=== PATIENT | female | born 1975 | race Caucasian/White ===

== ENCOUNTER 2021-07-10 08:21 | Inpatient (IN) | payer BC ==
[~2021-07-10] VITALS: Ht 172.7 cm; Wt 68.0 kg
[2021-07-10 08:27] VITALS: BP_SYST 110
--- NOTE | 2021-07-10 08:35 | NUR ---
RECEIVED PT IN BED #6, NAD, VSS, AAOx4, AWAITING ASSESSMENT BY ED MD FOR ABDOMINAL DISTENSION, CONSTIPATION, N/V. RECENT TREATMENT OF UTI. DID NOT FINISH ABX.
--- NOTE | 2021-07-10 08:39 | NUR ---
Patient to ER bed 6 to gown for evaluation. Side rails up. Report given to
--- NOTE | 2021-07-10 08:40 | NUR ---
ED MD BETANCUR AT BEDSIDE.
[2021-07-10] MEDS ORDERED: ONDANSETRON HCL 4 MG/2 ML VIAL IVP ONE (09:00)
[2021-07-10] MEDS ORDERED: NACL 0.9% 1,000 ML IV ONE ×2 (09:00→10:15)
[2021-07-10 09:15] LABS: BASOPHILS # (AUTO) 0.1 K/uL (0.0-0.2); BASOPHILS % (AUTO) 0.4 % (0.0-2.0); EOSINOPHILS # (AUTO) 0.1 K/uL (0.0-0.4); EOSINOPHILS % (AUTO) 0.4 % (0.0-4.0); HEMOGLOBIN 18.4 g/dL (12.0-16.0); LYMPHOCYTES # (AUTO) 2.2 K/uL (1.0-5.5); LYMPHOCYTES % (AUTO) 14.7 % (20.5-51.5); MEAN CORPUSCULAR HEMOGLOBIN 39 pg (27-31); MEAN CORPUSCULAR HGB CONC 36 % (32-36); MEAN CORPUSCULAR VOLUME 107 fL (79.0-98.0); MONOCYTES % (AUTO) 6.8 % (1.7-9.3); NEUTROPHILS # (AUTO) 11.5 K/uL (1.8-7.7); NEUTROPHILS % (AUTO) 77.7 % (40.0-70.0); PLATELET COUNT (AUTO) 468 K/uL (130-430); RED BLOOD CELL COUNT(AUTO) 4.77 MIL/uL (4.2-6.2); RED CELL DISTRIBUTION WIDTH 14.1 % (9.0-15.0)
[2021-07-10 09:24] LABS: WHITE BLOOD COUNT (AUTO) 14.8 K/uL (4.8-10.8)
[2021-07-10 09:54] LABS: CALCIUM 8.6 mg/dL (8.4-11.0); CREATININE 0.92 mg/dL (0.55-1.30)
[2021-07-10 10:00] LABS: ALBUMIN 3.9 g/dL (3.4-4.8); TOTAL BILIRUBIN 2.4 mg/dL (0.0-1.0)
[2021-07-10 10:01] LABS: POTASSIUM 2.5 mmol/L (3.5-5.1)
[2021-07-10] MEDS ORDERED: POTASSIUM CHLORIDE 20 MEQ/PKT PACKET PO ONE (10:15)
[2021-07-10] MEDS ORDERED: KCL 20 mEq in 100 mL (PREMIX) 100 ML IV ONE (10:15)
--- NOTE | 2021-07-10 11:15 | NUR ---
NO MEDS FOR RECONCILIATION PER PATIENT
--- NOTE | 2021-07-10 11:31 | NUR ---
Specimen Collected Nasal secretion collected and sent to lab for Covid antigen testing. pt aaox4. rails up bed down, pt is comfortable with no complaints at this time.
[2021-07-10 12:50] LABS: BILIRUBIN,URINE 1+ (NEGATIVE); BLOOD, URINE NEGATIVE (NEGATIVE); CLARITY/URINE CLEAR (CLEAR); COLOR,URINE YELLOW (YELLOW); GLUCOSE,URINE NEGATIVE (NEGATIVE); KETONES,URINE NEGATIVE (NEGATIVE); LEUKOCYTE ESTERASE ,URINE TRACE (NEGATIVE); NITRITE, URINE NEGATIVE (NEGATIVE); PROTEIN URINE NEGATIVE (NEGATIVE)
--- NOTE | 2021-07-10 13:00 | NUR ---
Admit bed requested Patient will be admitted to care of . Admitted to TELE unit. Diagnosis ACUTE CHOLECYSTITIS Inpatient (Yes or No) Y Observation (Yes or No) N Orientation concerns or request close to nursing station (Yes or No) N Covid Status NEG On vent or bipap N Isolation requirements N Needs a sitter N From Home (Yes or if No enter name of facility) Y Requires Dialysis (Yes or No) N Med Rec Completed (Yes of No) Y
[2021-07-10 13:36] LABS: BACTERIA,URINE FEW /HPF (None Seen); RBC,URINE 0-3 /HPF (0-3)
[2021-07-10 13:37] LABS: MUCUS,URINE 1+ /LPF (None Seen)
[2021-07-10] MEDS: metroNIDAZOLE 500 mg/NS 100 ML IV SCH (13:45)
--- NOTE | 2021-07-10 13:55 | NUR ---
ADMISSION NOTE: Received patient from ER via gurney. Patient is awake, alert, oriented X4. Patient oriented to hospital room, call light, toileting, pain management and safety-teach back done. Patient informed that is primary MD and that their room number is 118A Personal belongings checked and Belongings List documented. Call light within reach. Patient stable in no acute distress.
--- NOTE | 2021-07-10 13:58 | NUR ---
Patient will be admitted to care of Dr. Frank. Admitted to Tele unit. Will go to room 118A. Belongings list completed. Complete and up to date summary report printed. SBAR report to be given at bedside with opportunity for questions.
[2021-07-10] MEDS ORDERED: KCL 20 mEq in D5NS 1000 mL 1,000 ML IV ONE (14:00)
[2021-07-10] MEDS ORDERED: ONDANSETRON HCL 4 MG/2 ML VIAL IVP SCH (14:00)
--- NOTE | 2021-07-10 14:10 | NUR ---
CONSULTATION PAGED REASON FOR CONSULTATION:ACUTE CHOLECYSITI WAS CONSULT CALLED?Y PERSON WHO WAS NOTIFIED:VIET CONSULTING PHYSICIAN:EMERSON ALEGRIA (MARY BELLO SIGNS SALES REPRESENTATIVE) DRILLING CONTRACTOR SPECIALTY:GI DRILLING CONTRACTOR PHONE NUMBER:[phone] REQUESTING PHYSICIAN:SUGEY VAUGHAN
--- NOTE | 2021-07-10 14:15 | NUR ---
Miss Moore has been admitted to room 118-A. She has been assessed as indicated. Her skin has been noted to be intact. She tolerates ice chips well. She has no s/s of distress or discomfort. She denies nausea. She is eagerly awaiting interventions to relieve constipation. She has been noted to be both pleasant and cooperative, she will continue to be monitored
[2021-07-10 15:01] VITALS: BP_SYST 113
--- NOTE | 2021-07-10 19:15 | NUR ---
Handoff has been given to Alireza
[2021-07-10 19:59] VITALS: BP_SYST 122
[2021-07-10] MEDS: ENOXAPARIN SODIUM 40 MG/0.4 ML SYRINGE SUBCUT SCH (20:52)
[2021-07-11 00:35] VITALS: BP_SYST 112
[2021-07-11] MEDS ORDERED: metroNIDAZOLE 500 mg/NS 100 ML IV ONE (02:58)
[2021-07-11] MEDS: metroNIDAZOLE 500 mg/NS 100 ML IV SCH ×3 (05:35→22:12)
--- NOTE | 2021-07-11 07:26 | NUR ---
PATIENT HANDOFF REPORT WITH MARY ALICE KEVIN. GUSTAVO WEATHERS RN
[2021-07-11 07:55] LABS: BASOPHILS % (AUTO) 0.5 % (0.0-2.0); EOSINOPHILS # (AUTO) 0.1 K/uL (0.0-0.4); EOSINOPHILS % (AUTO) 1.2 % (0.0-4.0); HEMATOCRIT 39.5 % (36-48); LYMPHOCYTES % (AUTO) 27.2 % (20.5-51.5); MEAN CORPUSCULAR HEMOGLOBIN 39 pg (27-31); MEAN CORPUSCULAR HGB CONC 36 % (32-36); MONOCYTES # (AUTO) 0.5 K/uL (0.0-1.0); MONOCYTES % (AUTO) 6.6 % (1.7-9.3); NEUTROPHILS # (AUTO) 4.6 K/uL (1.8-7.7); NEUTROPHILS % (AUTO) 64.5 % (40.0-70.0); PLATELET COUNT (AUTO) 326 K/uL (130-430); RED BLOOD CELL COUNT(AUTO) 3.58 MIL/uL (4.2-6.2); RED CELL DISTRIBUTION WIDTH 14.1 % (9.0-15.0); WHITE BLOOD COUNT (AUTO) 7.2 K/uL (4.8-10.8)
[2021-07-11 08:00] VITALS: BP_SYST 132
[2021-07-11 08:03] LABS: CREATININE 0.75 mg/dL (0.55-1.30)
[2021-07-11 08:13] LABS: MEAN CORPUSCULAR VOLUME 110 fL (79.0-98.0)
[2021-07-11 09:03] LABS: POTASSIUM 2.8 mmol/L (3.5-5.1)
[2021-07-11 09:04] LABS: CALCIUM 6.8 mg/dL (8.4-11.0)
[2021-07-11] MEDS ORDERED: POTASSIUM CHLORIDE 20 MEQ TAB.PRT.SR PO ONE (11:00)
--- NOTE | 2021-07-11 11:06 | NUR ---
Dr Frank made aware of potassium level and calcium level. new orders as noted
[2021-07-11 12:00] VITALS: BP_SYST 124
[2021-07-11] MEDS: KCL 20 mEq in D5/0.45NS 1000mL 1,000 ML IV SCH ×2 (12:38→20:23)
[2021-07-11 16:00] VITALS: BP_SYST 127
[2021-07-11] MEDS ORDERED: MAGNESIUM SULFATE 4 GM in D5W 250 ML IV ONE (16:00)
--- NOTE | 2021-07-11 18:00 | NUR ---
Miss Moore has been assessed as indicated. She continues to deny pain. She states that she has had loose stools. Stool specimen has been sent to the lab. Potassium has been replaced. She completed and abdominal US. she is awaiting Magnesium replacement at this time. The med was not available at this time. She continues to ambulate to the restroom with no assistance. She has been advanced form clears to full and has tolerated it well.
--- NOTE | 2021-07-11 19:15 | NUR ---
Handoff has been given to Alireza
[2021-07-11 20:18] VITALS: BP_SYST 116
[2021-07-11] MEDS: ENOXAPARIN SODIUM 40 MG/0.4 ML SYRINGE SUBCUT SCH (20:20)
[2021-07-12 01:16] VITALS: BP_SYST 113
[2021-07-12 06:20] LABS: CREATININE 0.68 mg/dL (0.55-1.30)
[2021-07-12] MEDS: metroNIDAZOLE 500 mg/NS 100 ML IV SCH ×2 (06:41→12:40)
[2021-07-12 07:52] LABS: CALCIUM 6.9 mg/dL (8.4-11.0)
[2021-07-12 08:00] VITALS: BP_SYST 146
[2021-07-12 08:23] LABS: BASOPHILS # (AUTO) 0.1 K/uL (0.0-0.2); BASOPHILS % (AUTO) 1.1 % (0.0-2.0); EOSINOPHILS # (AUTO) 0.1 K/uL (0.0-0.4); HEMATOCRIT 41.6 % (36-48); HEMOGLOBIN 14.6 g/dL (12.0-16.0); LYMPHOCYTES # (AUTO) 1.6 K/uL (1.0-5.5); LYMPHOCYTES % (AUTO) 18.5 % (20.5-51.5); MEAN CORPUSCULAR HEMOGLOBIN 39 pg (27-31); MEAN CORPUSCULAR HGB CONC 35 % (32-36); MEAN CORPUSCULAR VOLUME 111 fL (79.0-98.0); MONOCYTES # (AUTO) 0.6 K/uL (0.0-1.0); MONOCYTES % (AUTO) 7.3 % (1.7-9.3); NEUTROPHILS # (AUTO) 6.1 K/uL (1.8-7.7); PLATELET COUNT (AUTO) 331 K/uL (130-430); RED BLOOD CELL COUNT(AUTO) 3.76 MIL/uL (4.2-6.2); RED CELL DISTRIBUTION WIDTH 14.2 % (9.0-15.0); WHITE BLOOD COUNT (AUTO) 8.4 K/uL (4.8-10.8)
[2021-07-12 08:54] LABS: NEUTROPHILS % (AUTO) 72.1 % (40.0-70.0)
[2021-07-12] MEDS ORDERED: CALCIUM GLUCONATE 2 GM in NS 100 ML IV ONE (10:00)
[2021-07-12] MEDS ORDERED: K PHOS 15 MM in NS 250 ML IV ONE (12:00)
[2021-07-12] MEDS ORDERED: METR-154 PO (14:07)
[2021-07-12] MEDS ORDERED: SACC250C3 PO ×2 (14:32→14:33)
--- NOTE | 2021-07-12 18:19 | NUR ---
0800: PATIENT IS AWAKE, ALERT, ORIENTED X 4 TO NAME, PERSON, PLACE, AND TIME. RESPIRATION EVEN AND UNLABORED NO S/S OF ANY ACUTE DISTRESS NOTED. ABLE TO VERBALIZE NEEDS NO C/O ANY PAIN OR DISCOMFORT NOTED. ABDOMEN SOFT AND NON-DISTENDED, POSITIVE BOWEL SOUND X 4 NO N/V OR ABDOMINAL DISCOMFORT NOTED. SKIN WARM AND DRY INTACT W/O ANY REDNESS OR EDEMA NOTED. WILL CONTINUE TO REASSESS PATIENT PRN. 1030: MADE DR. Lesly MOON AWARE OF ABNORMAL LAB RESULT WITH NEW ORDER RECEIVED, NOTED AND WAS CARRIED OUT ORDERED. 1800: PATIENT DISCHARGE HOME WITH NEW PRESCRIPTION FOR MEDS GIVEN TO PATIENT. DISCHARGE INSTRUCTION GIVEN TO PATIENT VERBALIZE UNDERSTANDING AND WILL COMPLY WITH INSTRUCTION GIVEN. IV HEPLOCK AND TOP LOADER DC'D. PATIENT LEFT THE HOSPITAL W/O ANY DISCOMFORT NOTED.
== END 2021-07-12 17:48 | disposition home or self-care (01) | DRG 392 ==
LOC: SED 08:21 → STU 12:54
PROVIDERS: ADMIT Family Medicine; ATTEND Family Medicine
DX: K52.9 Noninfective gastroenteritis and colitis, unspecified (principal); E86.0 Dehydration; R74.01 Elevation of levels of liver transaminase levels; E87.6 Hypokalemia; D72.829 Elevated white blood cell count, unspecified; Z20.822 Contact with and (suspected) exposure to COVID-19; Z87.440 Personal history of urinary (tract) infections
CPT/HCPCS: 36415; 74021; 76376; 76700-TC; 80048; 80053; 80074; 81000; 82272; 83690; 83735; 84100; 85025; 87045-TC; 87046; 87081; 87086; 87230-TC; 89055; 93005; 96374; 99285; G0378; J0610; J1650; J2405; J3475; J3480; J3490; J7050; J7060

== ENCOUNTER 2021-07-22 01:01 | Emergency (ER) | payer BC ==
[~2021-07-22] VITALS: Ht 172.7 cm; Wt 68.0 kg
[~2021-07-22 01:01] MED LIST: METR-154 PO; SACC250C3 PO
[2021-07-22 01:30] VITALS: BP_SYST 127
[2021-07-22] MEDS ORDERED: LIDOCAINE/EPI 1% 1:100000 20 ML VIAL INJ ONE (01:45)
--- NOTE | 2021-07-22 01:45 | NUR ---
INITIAL ASSESSMENT DONE, CONNECTED TO BEDSIDE MONITOR VSS,AFEBRILE.
[2021-07-22] MEDS ORDERED: CEPH-548 PO (02:15)
[2021-07-22] MEDS ORDERED: NAPR-690 PO (02:15)
[2021-07-22] MEDS ORDERED: ANURH RC (02:15)
[2021-07-22 02:41] VITALS: BP_SYST 128
--- NOTE | 2021-07-22 02:44 | NUR ---
0150 DR MENJIVAR IN EXAMINING PT. AWAITING FOR HEMORROIDS I&D
--- NOTE | 2021-07-22 02:46 | NUR ---
[address] MENJIVAR FOR I &D ASEPTICALLY.HEMORROIDS WITH [place] EVACUATED
--- NOTE | 2021-07-22 02:47 | NUR ---
0215 Patient given written and verbal discharge instructions and verbalizes understanding. ER MD MENJIVAR discussed with patient the results and treatment provided. Patient in stable condition. ID arm band removed. Rx of ANUSOL SUPP given. Patient educated on pain management and to follow up with PMD. Pain Scale 4. Opportunity for questions provided and answered. Medication side effect fact sheet provided.
[2021-07-22] MEDS ORDERED: HYDR-3917 PO (06:19)
[2021-07-22] MEDS ORDERED: BISA-79 PO (06:19)
== END 2021-07-22 02:41 | disposition home or self-care (01) ==
LOC: SED 01:01
DX: K64.4 Residual hemorrhoidal skin tags (principal)
CPT/HCPCS: 99284

== ENCOUNTER 2021-07-22 05:28 | Emergency (ER) | payer BC ==
[~2021-07-22] VITALS: Ht 172.7 cm; Wt 68.0 kg
[~2021-07-22 05:28] MED LIST changes: +ANURH RC; +CEPH-548 PO; +NAPR-690 PO
[2021-07-22 05:45] VITALS: BP_SYST 123
--- NOTE | 2021-07-22 06:09 | NUR ---
ER at bedside examining patient.
[2021-07-22] MEDS ORDERED: HYDR-3917 PO (06:19)
[2021-07-22] MEDS ORDERED: BISA-79 PO (06:19)
[2021-07-22] MEDS: MORPHINE 4 MG INJ. 4 MG/ML VIAL IM ONE (06:30)
--- NOTE | 2021-07-22 06:30 | NUR ---
Pt seen earlier today in ED for external hemorroids and was then discharged home. Pt returned to ED shortly after due to worsening of pain. Describes pain as 10/10 sharp rectal pain. at bedside.
[2021-07-22] MEDS: KETAMINE 30 MG/3 ML SYRINGE IM ONE (06:39)
--- NOTE | 2021-07-22 07:10 | NUR ---
REPORT RECEIVED FROM MARY ALICE LONDON. PT IS LAYING IN BED, AAOX4, VSS. AT THE BEDSIDE
[2021-07-22 07:47] VITALS: BP_SYST 127
--- NOTE | 2021-07-22 07:48 | NUR ---
Patient given written and verbal discharge instructions and verbalizes understanding. ER MD discussed with patient the results and treatment provided. Patient in stable condition. ID arm band removed. Rx of NORCO AND DULCOLAX given. Patient educated on pain management and to follow up with PMD. Pain Scale 0/10. Opportunity for questions provided and answered. Medication side effect fact sheet provided.
== END 2021-07-22 07:48 | disposition home or self-care (01) ==
LOC: SED 05:28
DX: K64.5 Perianal venous thrombosis (principal); Z79.899 Other long term (current) drug therapy
CPT/HCPCS: 96372; 99284; J2270

== ENCOUNTER 2021-07-23 12:11 | Emergency (ER) | payer BC ==
[~2021-07-23] VITALS: Ht 172.7 cm; Wt 68.0 kg
[~2021-07-23 12:11] MED LIST changes: +BISA-79 PO; +HYDR-3917 PO
[2021-07-23 12:27] VITALS: BP_SYST 129
--- NOTE | 2021-07-23 12:27 | NUR ---
Patient to ER bed 7 to go for evaluation. Side rails up. Report given to MARY ALICE BRYAN. Addendum: 07/23/21 at 1257 by [email or web address] Patient to ER bed 7 to [facility] for evaluation. Side rails up. Report given to MARY ALICE COLVIN.
--- NOTE | 2021-07-23 12:36 | NUR ---
PT CAME IN FROM HOME STATES SHE WOULD LIKE TO RETURN TO WORK AND WOULD LIKE TO BE SEEN BY MD. REPORTS PAIN HAS IMPROVED BUT STILL WORSENES WITH MOVEMENTS. REPORTS SOME BLEEDING AT THE SITE OF REPAIR OF THROMBOSED HEMMORHOID BUT IT IS MINIMAL AND CONTROLLED. 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 PT IS AMBULATORY, AAOX4, VSS
--- NOTE | 2021-07-23 13:00 | NUR ---
Made contact with patient. Pt alert and oriented x 3. Here to have work note revised due to recent procedure to repair hemorrhoid done here 2 days ago. Pt awaiting MD spencer.
--- NOTE | 2021-07-23 13:01 | NUR ---
ER Dr. Diehl at bedside examining patient.
--- NOTE | 2021-07-23 13:20 | NUR ---
Patient given written and verbal discharge instructions and verbalizes understanding. ER MD discussed with patient the results and treatment provided. Patient in stable condition. ID arm band removed. Patient educated on pain management and to follow up with PMD. Pain scale 0/10. Opportunity for questions provided and answered.
== END 2021-07-23 13:20 | disposition home or self-care (01) ==
LOC: SED 12:11
DX: K62.5 Hemorrhage of anus and rectum (principal); Z79.899 Other long term (current) drug therapy
CPT/HCPCS: 99282

== ENCOUNTER 2022-02-28 04:46 | Inpatient (IN) | payer BC ==
[~2022-02-28] VITALS: Ht 172.7 cm; Wt 65.8 kg
--- NOTE | 2022-02-28 05:26 | NUR ---
ER in triage examining patient.
[2022-02-28 05:37] VITALS: BP_SYST 106
--- NOTE | 2022-02-28 05:43 | NUR ---
Patient triaged and placed in waiting room. VS checked and patient appears in no acute distress at this time. Accompanied by self, awaiting available bed.
[2022-02-28] MEDS ORDERED: NACL 0.9% 1,000 ML IV ONE ×2 (06:00→11:15)
[2022-02-28] MEDS ORDERED: ONDANSETRON HCL 4 MG/2 ML VIAL IVP ONE ×2 (06:00→09:15)
[2022-02-28] MEDS ORDERED: KETOROLAC TROMETHAMINE 30 MG VIAL IM ONE (06:00)
--- NOTE | 2022-02-28 06:03 | NUR ---
Patient ambulatory to bed hallway for further treatment
[2022-02-28] MEDS ORDERED: KETOROLAC TROMETHAMINE 30 MG VIAL IVP ONE (06:30)
[2022-02-28 06:42] LABS: BILIRUBIN,URINE 3+ (NEGATIVE); BLOOD, URINE NEGATIVE (NEGATIVE); CLARITY/URINE CLEAR (CLEAR); COLOR,URINE YELLOW (YELLOW); GLUCOSE,URINE TRACE (NEGATIVE); KETONES,URINE TRACE (NEGATIVE); LEUKOCYTE ESTERASE ,URINE TRACE (NEGATIVE); NITRITE, URINE POSITIVE (NEGATIVE); PH,URINE 6.5 (5.0-8.0); PROTEIN URINE 1+ (NEGATIVE)
[2022-02-28 06:44] LABS: UROBILINOGEN,URINE >=8 (0.2-1.0)
[2022-02-28 06:50] LABS: BACTERIA,URINE MODERATE /HPF (None Seen); MUCUS,URINE 1+ /LPF (None Seen); RBC,URINE 0-3 /HPF (0-3); YEAST,URINE Few /HPF (None Seen)
--- NOTE | 2022-02-28 07:54 | NUR ---
Medicated per MD orders. IVF infusing with no s/s of infiltration at this time. Will cont to monitor
--- NOTE | 2022-02-28 07:54 | NUR ---
MARY ALICE CHOE medicated per MD Zavala ordered. Pt tolerated well.
--- NOTE | 2022-02-28 07:54 | NUR ---
# 20 gauge angiocath placed to LAC. Use of asceptic technique. Opsite placed over site. Blood return noted. Blood for lab drawn from site. Flushed with 10 cc of normal saline. No evidence of infiltration noted. Patient tolerated well.
--- NOTE | 2022-02-28 08:11 | NUR ---
Pt pain reassessed, pt states pain has relieved to 5/10. Laying comfortably in gurney in rowan with blanket. Alert and oriented x4.
[2022-02-28 08:38] LABS: BASOPHILS % (AUTO) 0.1 % (0.0-2.0); HEMOGLOBIN 12.7 g/dL (12.0-16.0); LYMPHOCYTES % (AUTO) 9.1 % (20.5-51.5); MEAN CORPUSCULAR HEMOGLOBIN 39 pg (27-31); MEAN CORPUSCULAR HGB CONC 34 % (32-36); MEAN CORPUSCULAR VOLUME 113 fL (79.0-98.0); MONOCYTES # (AUTO) 0.7 K/uL (0.0-1.0); MONOCYTES % (AUTO) 6.4 % (1.7-9.3); NEUTROPHILS # (AUTO) 9.1 K/uL (1.8-7.7); NEUTROPHILS % (AUTO) 84.4 % (40.0-70.0); PLATELET COUNT (AUTO) 240 K/uL (130-430); RED BLOOD CELL COUNT(AUTO) 3.28 MIL/uL (4.2-6.2); RED CELL DISTRIBUTION WIDTH 16.5 % (9.0-15.0); WHITE BLOOD COUNT (AUTO) 10.8 K/uL (4.8-10.8)
[2022-02-28 08:53] LABS: CALCIUM 7.6 mg/dL (8.4-11.0); CREATININE 0.84 mg/dL (0.55-1.30)
--- NOTE | 2022-02-28 08:57 | NUR ---
PT denies food , requests apple juice. Pt states pain level is returning to right flank 09/08.
[2022-02-28 08:59] LABS: ALBUMIN 2.2 g/dL (3.4-4.8); TOTAL BILIRUBIN 3.7 mg/dL (0.0-1.0)
[2022-02-28] MEDS ORDERED: iohexoL 350 mgI/mL, 100 ML INFUS..BTL IV ONE (09:05)
[2022-02-28] MEDS ORDERED: MORPHINE 4 MG INJ. 4 MG/ML VIAL IVP ONE (09:15)
--- NOTE | 2022-02-28 09:15 | NUR ---
VSS 118/78 heart rate 108. notified.
[2022-02-28 09:24] LABS: INR 1.1 (0.8-1.2); PROTHROMBIN TIME 11.9 SECS (9.5-12.5)
--- NOTE | 2022-02-28 10:50 | NUR ---
PT PAIN MANAGED WITH 05/09. PT ALERT ORIENTED WITH BED RAILS UP BED DOWN.
[2022-02-28] MEDS ORDERED: *HEPARIN PER PHARMACY XX ONE (11:00)
[2022-02-28] MEDS ORDERED: cefTRIAXone 1 GM in D5W 50 ML IV ONE (11:15)
[2022-02-28] MEDS ORDERED: ACETAMINOPHEN 325 MG TABLET PO PRN (11:30)
[2022-02-28] MEDS ORDERED: HYDROcodone/ACETAMIN 5-325 MG TAB (NORCO/ VICODIN) PO PRN (11:30)
[2022-02-28] MEDS ORDERED: ONDANSETRON HCL 4 MG/2 ML VIAL IVP PRN (11:30)
[2022-02-28] MEDS ORDERED: cefTRIAXone 1 GM VIAL ONE (11:32)
[2022-02-28] MEDS ORDERED: HEPARIN SODIUM,PORCINE 3000 UNITS/0.6 ML BOLUS IVP PRN (11:45)
[2022-02-28] MEDS ORDERED: HEPARIN SODIUM,PORCINE 2000 UNITS/0.4 ML BOLUS IVP PRN (11:45)
[2022-02-28] MEDS ORDERED: FOLIC ACID 1 MG, THIAMINE HCL 100 MG, MAGNESIUM SULFATE 1 GM, MVI 10 ML in NACL 0.9% 1,... IV ONE (11:45)
[2022-02-28] MEDS ORDERED: HEPARIN SODIUM,PORCINE 5,000 UNITS/ML VIAL IVP ONE (11:45)
[2022-02-28] MEDS: HEPARIN 25,000 UNITS in 250 ML PREMIX IV PRN (11:53)
--- NOTE | 2022-02-28 11:53 | NUR ---
covid swab collected
--- NOTE | 2022-02-28 12:54 | NUR ---
CONSULT: CONSULT CALLED FOR DR ANNETTE Gilbert REASON: POM ORDERED BY DR LAI
--- NOTE | 2022-02-28 13:09 | NUR ---
CONSULT CALLED FOR Ofelia ELIZABETH REASON; POM REQUESTING - DR LAI SPOKE WITH SURYA
[2022-02-28] MEDS ORDERED: FOLIC ACID 1 MG, MVI 10 ML in NACL 0.9% 1,000 ML IV ONE (13:30)
[2022-02-28] MEDS: cefTRIAXone 1 GM IVPB PREMIX 50 ML IV SCH (13:30)
[2022-02-28] MEDS ORDERED: THIAMINE HCL 100 MG, MAGNESIUM SULFATE 1 GM in NS 100 ML IV ONE (13:30)
--- NOTE | 2022-02-28 13:58 | NUR ---
CONSULT CONSULT CALLED FOR DR REYES REASON: PE [phone] LAI
[2022-02-28] MEDS ORDERED: NORMAL SALINE 5 ML DISP.SYRIN IVF SCH (14:00)
[2022-02-28] MEDS: NORMAL SALINE 5 ML DISP.SYRIN IVF SCH ×2 (14:00→21:54)
--- NOTE | 2022-02-28 17:01 | NUR ---
SPOKE WITH CLEMENCIA FROM [facility] WITH PATIENTS INSURANCE FAXED OVER CLINICALS AND FACESHEET TO [phone] Addendum: 02/28/22 at 1702 by MAHENDRA SPOKE WITH CLEMENCIA FROM [facility] WITH PATIENTS INSURANCE FAXED OVER CLINICALS AND FACESHEET TO [phone] AUTH NUMBER FOR ADMISSION [id number]
--- NOTE | 2022-02-28 19:33 | NUR ---
REPORT GIVEN TO MARY ALICE SHEFFIELD. PT CARA, VSS
--- NOTE | 2022-02-28 19:48 | NUR ---
PATIENT RESTING, EASY TO AROUSE, NO VOICED C/O AT THIS TIME. IVF INFUSING PER ORDER NO S/S OF ANY DISTRESS NOTED. RESPIRATIONS EVEN AND NON LABORED, ABD SOFT WITH POSITIVE BOWEL SOUNDS, NO EDEMA NOTED. IV SITES INTACT. SIDE RAILS UP WILL CONTINUE TO MONITOR.
[2022-02-28] MEDS ORDERED: SACCHAROMYCES BOULARDII 250 MG CAPSULE (FLORASTOR) PO SCH (21:00)
[2022-02-28] MEDS: BISACODYL 5 MG TABLET.DR (DULCOLAX) PO SCH (21:41)
[2022-02-28] MEDS: LACTOBACILLUS RHAMNOSUS GG 1 CAP CAPSULE PO SCH (21:41)
--- NOTE | 2022-02-28 22:46 | NUR ---
PATIENT WAS MOVED INTO ROOM #8, CONTINUES TO REST WITHOUT ANY C/O PAIN OR DISCOMFORT AT THIS TIME. IVF INFUSING VIA THE PUMP PER 0RDER. NO S/S OF ANY DISTRESS NOTED, WILL CONTINUE TO MONITOR.
--- NOTE | 2022-02-28 23:32 | NUR ---
PATIENT SLEEPING, EASY TO AROUSE, NO VOICED C/O PAIN OR DISCOMFORT, NO CHANGE NOTED IN PRIMARY ASSESSMENT. SIDE RAILS REMAIN UP.
--- NOTE | 2022-03-01 02:56 | NUR ---
CONTINUES TO REST WITHOUT ANY C/O PAIN OR DISCOMFORT. IVF CONTINUE PER ORDER, SIDE RAILS REMAINE UP, WILL CONTINUE TO MONITOR.
--- NOTE | 2022-03-01 05:01 | NUR ---
CONSULTATION PAGED/CALLED Reason for Consultation: transaminitis Person Who was Notified: daniel Consulting Physician: timothy velásquez arrora is extermination inspector Ship Captain Specialty: Ordering Physician: alondra burnham
[2022-03-01 05:39] LABS: BASOPHILS % (AUTO) 0.5 % (0.0-2.0); EOSINOPHILS # (AUTO) 0.1 K/uL (0.0-0.4); EOSINOPHILS % (AUTO) 0.8 % (0.0-4.0); HEMATOCRIT 33.4 % (36-48); HEMOGLOBIN 11.7 g/dL (12.0-16.0); LYMPHOCYTES # (AUTO) 1.2 K/uL (1.0-5.5); LYMPHOCYTES % (AUTO) 16.6 % (20.5-51.5); MEAN CORPUSCULAR HEMOGLOBIN 39 pg (27-31); MEAN CORPUSCULAR HGB CONC 35 % (32-36); MEAN CORPUSCULAR VOLUME 112 fL (79.0-98.0); MONOCYTES # (AUTO) 0.3 K/uL (0.0-1.0); MONOCYTES % (AUTO) 4.2 % (1.7-9.3); NEUTROPHILS # (AUTO) 5.4 K/uL (1.8-7.7); NEUTROPHILS % (AUTO) 77.9 % (40.0-70.0); PLATELET COUNT (AUTO) 207 K/uL (130-430); RED BLOOD CELL COUNT(AUTO) 2.97 MIL/uL (4.2-6.2); RED CELL DISTRIBUTION WIDTH 16.6 % (9.0-15.0)
[2022-03-01 06:07] LABS: ERYTHROCYTE SEDIMENTATION RATE 23 MM/HR (0-20)
--- NOTE | 2022-03-01 06:07 | NUR ---
SLEEPING, NO S/S F ANY DISTRESS NOTED AT THIS TIME.
[2022-03-01] MEDS: NORMAL SALINE 5 ML DISP.SYRIN IVF SCH ×3 (06:12→21:30)
[2022-03-01 06:19] LABS: C-REACTIVE PROTEIN QUANT 11.1 mg/dL (0-0.5); CALCIUM 7.5 mg/dL (8.4-11.0); CREATININE 0.62 mg/dL (0.55-1.30); PHOSPHORUS 2.2 mg/dL (2.7-4.5)
[2022-03-01] MEDS ORDERED: KCL 40 mEq in 100 mL (PREMIX) 100 ML IV ONE (07:00)
--- NOTE | 2022-03-01 07:08 | NUR ---
PMD INFORMED OF MORNING POTASSIUM LEVEL OF 2.4, MEDICATATED INFUSING PER ORDER.
--- NOTE | 2022-03-01 07:29 | NUR ---
REPORT GIEN TO ACCEPTING NURSE, PATIENT REMAINS STABLE.
--- NOTE | 2022-03-01 07:35 | NUR ---
Stanley of care received, pt A&O x4, sitting in bed at this time, pt requesting pain medications at this time, will cont to monitor
[2022-03-01] MEDS ORDERED: POTASSIUM CHLORIDE 40 MEQ in NS 250 ML IV ONE (08:00)
--- NOTE | 2022-03-01 08:05 | NUR ---
PTT Per protocol ordered at this time, awaiting for results
[2022-03-01] MEDS ORDERED: MORPHINE 4 MG INJ. 4 MG/ML VIAL IVP ONE (08:15)
--- NOTE | 2022-03-01 08:20 | NUR ---
Dr Ramirez evaluating patient at bedside
--- NOTE | 2022-03-01 09:10 | NUR ---
Breakfast given to patient, well tolerated
[2022-03-01] MEDS: BISACODYL 5 MG TABLET.DR (DULCOLAX) PO SCH ×2 (10:27→21:00)
[2022-03-01] MEDS: LACTOBACILLUS RHAMNOSUS GG 1 CAP CAPSULE PO SCH ×2 (10:27→21:30)
[2022-03-01] MEDS: HEPARIN 25,000 UNITS in 250 ML PREMIX IV PRN ×2 (11:35→18:29)
--- NOTE | 2022-03-01 11:45 | NUR ---
Dr Islas and pharmacy notified of pt's PTT 44.3, HEPARIN DRIP infusion increase by 100 units, Heparin adjusted to 1100UNITS/HR , 11 ML/ HR , will repeat PTT in 6 hours after dose changed.
--- NOTE | 2022-03-01 12:44 | NUR ---
Dr Mackenzie (PA)evaluating patient at bedside
--- NOTE | 2022-03-01 12:58 | NUR ---
LUNCH TRAY GIVEN TO PATIENT , WELL TOLERATED
[2022-03-01] MEDS: cefTRIAXone 1 GM IVPB PREMIX 50 ML IV SCH (14:08)
--- NOTE | 2022-03-01 15:36 | NUR ---
Pt resting in bed at this time, no s/s of distress, will cont to monitor
--- NOTE | 2022-03-01 16:00 | NUR ---
Pt off the unit for US
--- NOTE | 2022-03-01 16:37 | NUR ---
Dr Islas notified US for misbah lower extremities was negative
--- NOTE | 2022-03-01 18:30 | NUR ---
PTT 39, HEPARIN DRIP infusion increased by 200 units per Protocol, Heparin 2000 units IVP administered per protocol, Heparin adjusted to 1300UNITS/HR , 13 ML/ HR as per protocol , will repeat PTT in 6 hours after dose changed.
--- NOTE | 2022-03-01 19:28 | NUR ---
Report given to Allegra WHEAT
--- NOTE | 2022-03-01 19:30 | NUR ---
Pt report received. Pt AAOx4, even and non-labored respirations, no needs verbalized at this time. PIV LAC patent and secure with Heparin drip infusing at 1300 Units/hr. VSS, NAD.
[2022-03-01] MEDS: HYDROcodone/ACETAMIN 10-325 MG TAB PO PRN (21:48)
--- NOTE | 2022-03-01 21:48 | NUR ---
Pt c/o lower back pain. [place] 10 mg PO given.
--- NOTE | 2022-03-01 22:48 | NUR ---
Alexy sanchez in ED - 03/01/22 at 2317 by [email or web address] Pt resting quietly with eyes closed, respirations even and non-labored, NAD.
--- NOTE | 2022-03-01 22:48 | NUR ---
Pt resting quietly with eyes closed, respirations even and non-labored, NAD.
--- NOTE | 2022-03-02 02:00 | NUR ---
Resting quietly, VSS, NAD.
[2022-03-02] MEDS ORDERED: HEPARIN 25,000 UNITS/D5W 250ML 250 ML IV ONE (06:12)
[2022-03-02] MEDS ORDERED: HYDROcodone/ACETAMIN 10-325 MG TAB ONE (06:16)
[2022-03-02] MEDS: NORMAL SALINE 5 ML DISP.SYRIN IVF SCH ×3 (06:20→21:32)
[2022-03-02 06:26] LABS: BASOPHILS % (AUTO) 0.5 % (0.0-2.0); EOSINOPHILS # (AUTO) 0.1 K/uL (0.0-0.4); EOSINOPHILS % (AUTO) 1.3 % (0.0-4.0); HEMATOCRIT 32.7 % (36-48); HEMOGLOBIN 11.3 g/dL (12.0-16.0); LYMPHOCYTES # (AUTO) 1.3 K/uL (1.0-5.5); LYMPHOCYTES % (AUTO) 18.1 % (20.5-51.5); MEAN CORPUSCULAR HEMOGLOBIN 39 pg (27-31); MEAN CORPUSCULAR HGB CONC 35 % (32-36); MEAN CORPUSCULAR VOLUME 113 fL (79.0-98.0); MONOCYTES # (AUTO) 0.5 K/uL (0.0-1.0); MONOCYTES % (AUTO) 7.4 % (1.7-9.3); NEUTROPHILS # (AUTO) 5.1 K/uL (1.8-7.7); NEUTROPHILS % (AUTO) 72.7 % (40.0-70.0); PLATELET COUNT (AUTO) 210 K/uL (130-430); RED CELL DISTRIBUTION WIDTH 16.3 % (9.0-15.0)
[2022-03-02] MEDS: HEPARIN 25,000 UNITS in 250 ML PREMIX IV PRN ×2 (06:26→21:56)
[2022-03-02] MEDS: HYDROcodone/ACETAMIN 10-325 MG TAB PO PRN ×2 (06:29→21:32)
--- NOTE | 2022-03-02 06:29 | NUR ---
Pt c/o Right lower back pain. Medicated with [place] 10 mg PO.
[2022-03-02 07:07] LABS: ALBUMIN 1.9 g/dL (3.4-4.8); C-REACTIVE PROTEIN QUANT 9.1 mg/dL (0-0.5); CALCIUM 7.8 mg/dL (8.4-11.0); CREATININE 0.45 mg/dL (0.55-1.30); TOTAL BILIRUBIN 2.7 mg/dL (0.0-1.0)
--- NOTE | 2022-03-02 07:56 | NUR ---
PT SLEEPING QUIETLY AT THIS TIME. NO CHANGES
--- NOTE | 2022-03-02 07:56 | NUR ---
RECEIVED REPORT FROM MADDIE, WILL ASSUME CARE
--- NOTE | 2022-03-02 08:32 | NUR ---
Admit bed requested Patient will be admitted to care of . Admitted to TELE unit. Diagnosis PE, UTI Inpatient (Yes or No) Y Observation (Yes or No) N Orientation concerns or request close to nursing station (Yes or No) NO Covid Status NEGATIVE On vent or bipap N Isolation requirements N Needs a sitter N From Home (Yes or if No enter name of facility) YES Requires Dialysis (Yes or No) N Med Rec Completed (Yes of No) Y
[2022-03-02] MEDS: BISACODYL 5 MG TABLET.DR (DULCOLAX) PO SCH ×2 (09:00→20:38)
[2022-03-02] MEDS ORDERED: KCL 40 mEq in 100 mL (PREMIX) 100 ML IV ONE (09:00)
[2022-03-02 09:03] LABS: ERYTHROCYTE SEDIMENTATION RATE 40 MM/HR (0-20)
--- NOTE | 2022-03-02 09:03 | NUR ---
SPOKE WITH DR LAI REGARDING K=2.5, ORDERS RECEIVED. PT GETTING READY FOR TRANSFER TO TELEMETRY UNIT
--- NOTE | 2022-03-02 09:30 | NUR ---
Patient will be admitted to care of DR LAI. Admitted to TELE unit. Will go to room 130B. Belongings list completed. Complete and up to date summary report printed. SBAR report to be given at bedside with opportunity for questions. REPORT GIVEN TO CHASIDY
[2022-03-02] MEDS: POTASSIUM CHLORIDE 20 MEQ TAB.PRT.SR PO SCH ×2 (09:53→20:37)
[2022-03-02] MEDS: LACTOBACILLUS RHAMNOSUS GG 1 CAP CAPSULE PO SCH ×2 (09:55→20:39)
[2022-03-02] MEDS: POTASSIUM CHLORIDE 20 mEq in 100 mL (PREMIX) 100 ML x 2 doses IV SCH ×2 (12:00→14:00)
[2022-03-02] MEDS: cefTRIAXone 1 GM IVPB PREMIX 50 ML IV SCH (14:15)
[2022-03-02 20:00] VITALS: BP_SYST 147
--- NOTE | 2022-03-02 20:08 | NUR ---
RECEIVED PT LYING IN BED, PT APPEARS LETHARGIC, ORIENTED TO SELF AND PLACE. O2 SAT 96% ON OXIMIZER. 5L. IJ TO RT SIDE OF NECK SITE CDI. NO IV ACCESS AT THIS TIME. EDEMA NOTED RUE. BRUISING NOTED TO LUE, DISCOLORIZATION TO BLE. WEAK PULSES TO ALL EXTREMITIES. COOLNESS NOTED TO RLE. Addendum: 03/02/22 at 2014 by [place] MARY ALICE Coronado RN DOCUMENTED ON WRONG PATIENT. PLEASE DISREGARD ABOVE NOTE.
[2022-03-02 20:20] VITALS: BP_SYST 108
--- NOTE | 2022-03-02 20:28 | NUR ---
RECEIVED PT LYING IN BED, NO DISTRESS NOTED. AAOX4, O2 SAT 97% ON RA. HEPARIN INFUSING TO RT FA AT 1300UNITS/HR AND POTASSIUM TO LT AC STIES CDI. LUNGS CLEAR. PALPABLE PULSES TO ALL EXTREMITIES.
--- NOTE | 2022-03-02 21:26 | NUR ---
PATIENT ADMITTED FROM ER AFTER BEING IN ER FOR SEVERAL DAY,S . RECEIVED PATIENT ON HEPARIN DRIP FOR PULMONARY EMBOLI. PATENT ALSO BEING TREATED FOR UTI WITH IV ANTIBIOTIC'S. POTASSIUM LEVEL SEVERE LOW BEING REPLACED WITH PO AND IV POTASSIUM. ORIENTED TO ROOM CALL LIGHT TO CALL NURSE FOR PAIN MEDICATION. PLAN TO FOLLOW UP ON LABS WBC AND K LEVEL FOLLOW PTT LEVELS FOR ADJUSTMENT'S IN HEPARIN DRIP.
--- NOTE | 2022-03-02 21:38 | NUR ---
PT HR SUSTAINING 130S, C/O RT FLANK PAIN RATING IT 8/10. DENIES CHEST PAIN. MEDICATED WITH NORCO 10. WILL MONITOR CLOSELY.
[2022-03-03] VITALS: BP_SYST 101
[2022-03-03] MEDS ORDERED: HEPARIN 25,000 UNITS/D5W 250ML 250 ML IV ONE (02:57)
[2022-03-03] MEDS: NORMAL SALINE 5 ML DISP.SYRIN IVF SCH ×2 (05:17→13:17)
[2022-03-03 06:20] LABS: BASOPHILS # (AUTO) 0.1 K/uL (0.0-0.2); BASOPHILS % (AUTO) 0.7 % (0.0-2.0); EOSINOPHILS # (AUTO) 0.1 K/uL (0.0-0.4); EOSINOPHILS % (AUTO) 1.6 % (0.0-4.0); HEMATOCRIT 30.5 % (36-48); HEMOGLOBIN 10.7 g/dL (12.0-16.0); LYMPHOCYTES # (AUTO) 1.9 K/uL (1.0-5.5); MEAN CORPUSCULAR HEMOGLOBIN 40 pg (27-31); MEAN CORPUSCULAR HGB CONC 35 % (32-36); MEAN CORPUSCULAR VOLUME 113 fL (79.0-98.0); MONOCYTES # (AUTO) 0.7 K/uL (0.0-1.0); MONOCYTES % (AUTO) 9.3 % (1.7-9.3); NEUTROPHILS # (AUTO) 4.5 K/uL (1.8-7.7); NEUTROPHILS % (AUTO) 62.4 % (40.0-70.0); PLATELET COUNT (AUTO) 227 K/uL (130-430); RED CELL DISTRIBUTION WIDTH 16.6 % (9.0-15.0); WHITE BLOOD COUNT (AUTO) 7.2 K/uL (4.8-10.8)
[2022-03-03 06:54] LABS: ALBUMIN 1.8 g/dL (3.4-4.8); C-REACTIVE PROTEIN QUANT 10.4 mg/dL (0-0.5); CALCIUM 8.1 mg/dL (8.4-11.0); CREATININE 0.41 mg/dL (0.55-1.30)
--- NOTE | 2022-03-03 07:22 | NUR ---
OPENING NOTE RECEIVED SBAR FROM NIGHT RN. PATIENT IN BED, RESPIRATIONS EVEN NON LABORED, BED IN LOW AND LOCKED POSITION CALL LIGHT WITHIN REACH
--- NOTE | 2022-03-03 07:54 | NUR ---
potassium informed Dr Evans of 3.1 potassium new orders received
[2022-03-03 08:00] VITALS: BP_SYST 129
[2022-03-03] MEDS ORDERED: POTASSIUM CHLORIDE 20 MEQ TAB.PRT.SR PO ONE (08:00)
[2022-03-03 08:15] LABS: ERYTHROCYTE SEDIMENTATION RATE 51 MM/HR (0-20)
[2022-03-03] MEDS: LACTOBACILLUS RHAMNOSUS GG 1 CAP CAPSULE PO SCH (08:22)
[2022-03-03] MEDS: BISACODYL 5 MG TABLET.DR (DULCOLAX) PO SCH ×2 (08:22→08:24)
[2022-03-03] MEDS: POTASSIUM CHLORIDE 20 MEQ TAB.PRT.SR PO SCH (08:23)
--- NOTE | 2022-03-03 09:56 | NUR ---
heparin reviewed heparin protocol, continue as ordered.
[2022-03-03] MEDS ORDERED: APIXABAN 2.5 MG TABLET PO SCH (10:45)
[2022-03-03] MEDS ORDERED: APIXABAN 2.5 MG TABLET PO ONE (11:00)
[2022-03-03 11:46] VITALS: BP_SYST 119
[2022-03-03] MEDS: cefTRIAXone 1 GM IVPB PREMIX 50 ML IV SCH (13:06)
--- NOTE | 2022-03-03 13:53 | NUR ---
Nurse note Patient in bed, respirations even, non labored, bed in low and locked position, call light within reach. IV is saline locked. Heparin was DC. family is bedside. Patient denies any pain or discomfort.
--- NOTE | 2022-03-03 16:06 | NUR ---
SPOKE WITH ADEN PERSON TO DISCHARGE PATIENT. HE WILL PUT IN ORDERS
[2022-03-03 16:23] VITALS: BP_SYST 122
[2022-03-03 16:32] VITALS: BP_SYST 126
[2022-03-04] MEDS ORDERED: APIX5TAB PO (15:51)
== END 2022-03-03 16:56 | disposition home or self-care (01) | DRG 175 ==
LOC: SED 04:46 → STU 11:24
PROVIDERS: ADMIT Preventive Medicine Preventive Medicine/Occupational Environmental Medicine; ATTEND Preventive Medicine Preventive Medicine/Occupational Environmental Medicine
DX: I26.99 Other pulmonary embolism without acute cor pulmonale (principal); E43 Unspecified severe protein-calorie malnutrition; J18.9 Pneumonia, unspecified organism; D64.9 Anemia, unspecified; E87.6 Hypokalemia; K74.60 Unspecified cirrhosis of liver; K59.09 Other constipation; E83.51 Hypocalcemia; R73.9 Hyperglycemia, unspecified; E83.52 Hypercalcemia; Z20.822 Contact with and (suspected) exposure to COVID-19; R74.01 Elevation of levels of liver transaminase levels; K76.9 Liver disease, unspecified; F10.21 Alcohol dependence, in remission; E88.09 Other disorders of plasma-protein metabolism, not elsewhere classified; Z79.891 Long term (current) use of opiate analgesic; Z79.899 Other long term (current) drug therapy; Z79.1 Long term (current) use of non-steroidal anti-inflammatories (NSAID); Z87.440 Personal history of urinary (tract) infections; Z68.22 Body mass index [BMI] 22.0-22.9, adult
CPT/HCPCS: 36415; 71045; 71275; 76376; 80048; 80053; 81000; 83605; 83735; 83880; 84100; 84484; 85025; 85610-TC; 85651-TC; 85730-TC; 86140; 87040; 87086; 93005; 93306; 93970; 96361; 96365; 96375; 96376; 99285; G0378; J0696; J1644; J1885; J2270; J2405; J3411; J3475; J3480; J3490; J7030; J7050; J7120; Q9967

== ENCOUNTER 2022-05-20 16:53 | Inpatient (IN) | payer BC ==
[~2022-05-20] VITALS: Ht 175.3 cm; Wt 67.6 kg
[~2022-05-20 16:53] MED LIST changes: +APIX5TAB PO
[2022-05-20 17:00] VITALS: BP_SYST 67
--- NOTE | 2022-05-20 17:10 | NUR ---
PT BIBA AWAKE AND ALTERED, AOX1. PT O2 SAT WAS 87% RA. PT SKIN LOOKED JUANDICED, THROUGHT OUT HER BODY. PT BS WAS 33 UPON ARRIVAL. PT WAS ALSO HYPOTENSIVE AT 87/54. PT CAME FROM HOME AND DAUGHTER CALLED 911.
--- NOTE | 2022-05-20 17:10 | NUR ---
MD DR SPENCER AT BEDSIDE
[2022-05-20] MEDS ORDERED: DEXTROSE 50% JECT 50 ML DISP.SYRIN ONE (17:11)
--- NOTE | 2022-05-20 17:20 | NUR ---
PT TAKEN TO XRAY
[2022-05-20] MEDS ORDERED: dilTIAZem HCL IVP 5 MG/ML VIAL IVP ONE (18:00)
[2022-05-20] MEDS ORDERED: NACL 0.9% 2,000 ML IV ONE (18:00)
[2022-05-20 18:41] LABS: ALANINE AMINOTRANSFERASE 109 U/L (12-78); ALBUMIN 1.2 g/dL (3.4-4.8); ANION GAP 29 (5-15); ASPARTATE AMINOTRANSFERASE 489 U/L (10-37); C-REACTIVE PROTEIN QUANT 7.3 mg/dL (0-0.5); CREATININE 5.78 mg/dL (0.55-1.30); GFR AFRICAN AMERICAN 10 mL/min (>90); GLUCOSE 142 mg/dL (70-99); UREA NITROGEN, BLOOD 71 mg/dL (8-21)
[2022-05-20 18:52] LABS: ACETAMINOPHEN < 1 ug/mL (1-30); ALCOHOL, BLOOD < 3 mg/dL (<10)
[2022-05-20 18:53] LABS: HEMOGLOBIN 9.2 g/dL (12.0-16.0); MEAN CORPUSCULAR HEMOGLOBIN 41 pg (27-31); MEAN CORPUSCULAR HGB CONC 33 % (32-36); MEAN CORPUSCULAR VOLUME 125 fL (79.0-98.0); PLATELET COUNT (AUTO) 171 K/uL (130-430); RED BLOOD CELL COUNT(AUTO) 2.24 MIL/uL (4.2-6.2); WHITE BLOOD COUNT (AUTO) 9.1 K/uL (4.8-10.8)
[2022-05-20 18:54] LABS: CALCIUM 6.1 mg/dL (8.4-11.0); CHLORIDE 82 mmol/L (98-107); TOTAL BILIRUBIN 18.4 mg/dL (0.0-1.0)
[2022-05-20] MEDS ORDERED: SODIUM BICARBONATE 8.4% JECT 50 MEQ/50 ML SYRINGE IVP ONE (19:00)
[2022-05-20] MEDS ORDERED: NACL 0.9% 3,000 ML IV ONE (19:00)
[2022-05-20 19:10] LABS: INR 3.8 (0.8-1.2); PROTHROMBIN TIME 36.1 SECS (9.5-12.5)
[2022-05-20] MEDS ORDERED: LACTULOSE 20 GM/30 ML UDC PO ONE (19:15)
[2022-05-20 19:32] LABS: CKMB RELATIVE INDEX 0.8 (0.0-2.9); CREATINE KINASE MB 17.4 ng/mL (0-3.6)
--- NOTE | 2022-05-20 19:34 | NUR ---
REPORT GIVEN TO LUTHER WHEAT. PT STABLE
[2022-05-20 19:55] LABS: ACETONE, SERUM NEGATIVE (NEGATIVE)
[2022-05-20] MEDS ORDERED: NOREPINEPHRINE 4 MG/4 ML VIAL IV ONE ×2 (20:19→23:19)
[2022-05-20] MEDS ORDERED: ALBUMIN HUMAN 5% 250 ML IV ONE ×2 (20:30)
[2022-05-20] MEDS ORDERED: NOREPINEPHRINE BITARTRATE 4 MG in NS 246 ML IV ONE (20:30)
[2022-05-20] MEDS ORDERED: D5/0.45 NS 1,000 ML IV SCH (20:30)
[2022-05-20 20:31] LABS: BAND % (MANUAL) 0 % (0-6); BASOPHILS % (MANUAL) 0 % (0-2); EOSINOPHILS % (MANUAL) 2 % (0-7); LYMPHOCYTES % (MANUAL) 15 % (20-46); MONOCYTES % (MANUAL) 2 % (0-11)
[2022-05-20 20:37] LABS: BILIRUBIN,URINE 3+ (NEGATIVE); BLOOD, URINE 3+ (NEGATIVE); CLARITY/URINE CLOUDY (CLEAR); COLOR,URINE GREEN (YELLOW); GLUCOSE,URINE TRACE (NEGATIVE); KETONES,URINE 1+ (NEGATIVE); LEUKOCYTE ESTERASE ,URINE 1+ (NEGATIVE); NITRITE, URINE POSITIVE (NEGATIVE); PH,URINE 6.5 (5.0-8.0); PROTEIN URINE 1+ (NEGATIVE)
[2022-05-20 20:39] LABS: UROBILINOGEN,URINE >=8 (0.2-1.0)
[2022-05-20 20:49] LABS: BARBITURATE, URINE NEGATIVE (NEG <=200); BENZODIAZEPINE, URINE NEGATIVE (NEG <=150); CANNABINOID, URINE NEGATIVE (NEG <=50); COCAINE, URINE NEGATIVE (NEG <=150); METHAMPHETAMINES SCREEN,URINE NEGATIVE (NEG <=500); OPIATE, URINE NEGATIVE (NEG <=100); PHENCYCLIDINE SCREEN,URINE NEGATIVE (NEG <=25); UR TRICYCLIC ANTIDEPRESSANTS NEGATIVE (NEG <=300); URINE AMPHETAMINE NEGATIVE (NEG <=500); URINE METHADONE NEGATIVE (NEG <=200); URINE OXYCODONE SCREEN NEGATIVE (NEG <=100); URINE PROPOXYPHENE SCREEN NEGATIVE (NEG <=300)
[2022-05-20 21:54] LABS: BACTERIA,URINE MANY /HPF (None Seen); WBC,URINE 20-50 /HPF (0-3)
[2022-05-20 21:55] LABS: FINE GRANULAR CASTS,URINE 0-10 /LPF (None Seen); MUCUS,URINE None Seen /LPF (None Seen); URINE AMORPHOUS URATE 2+ /HPF (None Seen); YEAST,URINE Many /HPF (None Seen)
[2022-05-20 22:00] VITALS: BP_SYST 85
--- NOTE | 2022-05-20 22:00 | NUR ---
Opening notes Received report from [facility] Clifford for continuity of care. Patient was transferred to ICU from ER using the gurney. Patient has a right EJ 18g, right AC 20g, and left hand 22g. Patient's vital signs blood pressure 85/36, heart rate 74, respirations 33, and SPO2 95% on 2L nasal cannula. Bed is locked and in lowest position, call light button within reach, fall and safety precautions is in place.
--- NOTE | 2022-05-20 22:55 | NUR ---
CONSULTATION PAGED/CALLED Reason for Consultation: Respiratory Compromise Person Who was Notified: Yuri Consulting Physician: Dr Chew Customer Service Advocate Specialty: Pulmonary Ordering Physician: Dr Jacome
[2022-05-20 23:00] VITALS: BP_SYST 82
[2022-05-20] MEDS ORDERED: NALOXONE HCL 0.4 MG/ML AMP (NARCAN) IVP PRN (23:00)
[2022-05-20] MEDS ORDERED: MORPHINE 2 MG/ML INJ. SYRINGE IVP PRN (23:00)
[2022-05-20] MEDS ORDERED: MORPHINE 4 MG INJ. 4 MG/ML VIAL IVP PRN (23:00)
[2022-05-20] MEDS ORDERED: ONDANSETRON HCL 4 MG/2 ML VIAL IVP PRN (23:00)
--- NOTE | 2022-05-20 23:00 | NUR ---
CONSULTATION PAGED/CALLED Reason for Consultation: Liver Failure/Renal Failure Person Who was Notified: Nohelia Consulting Physician: Dr Ramirez Intervention Teacher Specialty: GI Ordering Physician: Dr Jacome
--- NOTE | 2022-05-20 23:20 | NUR ---
CONSULTATION PAGED/CALLED Reason for Consultation: Sepsis Person Who was Notified: Nohelia Consulting Physician: Dr Khan Irradiated Fuel Handler Specialty: ID Ordering Physician: Dr Jacome CONSULTATION PAGED/CALLED Reason for Consultation: SAMSON Person Who was Notified: Nohelia Consulting Physician: Dr Medeiros Irradiated Fuel Handler Specialty: Nephrology Ordering Physician: Dr Jacome
[2022-05-20] MEDS: NOREPINEPHRINE BITARTRATE 4 MG in NS 246 ML IV PRN (23:25)
[2022-05-20 23:28] VITALS: BP_SYST 88
[2022-05-20] MEDS ORDERED: PIPERACILLIN/TAZO 4.5GM/DEX-IS 100 ML IV SCH (23:30)
[2022-05-20] MEDS: ALBUTEROL SULFATE 0.083% 2.5 MG/3 ML VIAL.NEB INH SCH (23:33)
[2022-05-20] MEDS: IPRATROPIUM BROM 0.5 MG/2.5 ML VIAL.NEB (ATROVENT) INH SCH (23:34)
[2022-05-21] VITALS (24 sets, daily range): BP systolic 79–126
[2022-05-21] MEDS ORDERED: ALBUMIN HUMAN 25% 100 ML IV ONE ×2 (00:10)
[2022-05-21] MEDS ORDERED: PIPERACILLIN/TAZOBACTAM 2.25 GM VIAL IV ONE (00:12)
[2022-05-21] MEDS: NACL 0.9% 1,000 ML IV SCH ×3 (00:14→10:35)
[2022-05-21] MEDS: PIPERACILLIN/TAZO 2.25G/DEX-IS 50 ML IV SCH ×3 (00:15→13:24)
[2022-05-21] MEDS: ALBUTEROL SULFATE 0.083% 2.5 MG/3 ML VIAL.NEB INH SCH ×5 (03:24→19:00)
[2022-05-21] MEDS: IPRATROPIUM BROM 0.5 MG/2.5 ML VIAL.NEB (ATROVENT) INH SCH ×5 (03:25→19:00)
[2022-05-21 05:24] LABS: BASOPHILS % (AUTO) 0.5 % (0.0-2.0); EOSINOPHILS # (AUTO) 0.1 K/uL (0.0-0.4); EOSINOPHILS % (AUTO) 1.2 % (0.0-4.0); HEMATOCRIT 27.1 % (36-48); HEMOGLOBIN 9.2 g/dL (12.0-16.0); LYMPHOCYTES # (AUTO) 0.6 K/uL (1.0-5.5); LYMPHOCYTES % (AUTO) 7.7 % (20.5-51.5); MEAN CORPUSCULAR HEMOGLOBIN 42 pg (27-31); MEAN CORPUSCULAR HGB CONC 34 % (32-36); MEAN CORPUSCULAR VOLUME 123 fL (79.0-98.0); MONOCYTES # (AUTO) 0.2 K/uL (0.0-1.0); MONOCYTES % (AUTO) 1.9 % (1.7-9.3); NEUTROPHILS # (AUTO) 6.9 K/uL (1.8-7.7); NEUTROPHILS % (AUTO) 88.7 % (40.0-70.0); PLATELET COUNT (AUTO) 174 K/uL (130-430); RED BLOOD CELL COUNT(AUTO) 2.19 MIL/uL (4.2-6.2); RED CELL DISTRIBUTION WIDTH 21.1 % (9.0-15.0); WHITE BLOOD COUNT (AUTO) 7.8 K/uL (4.8-10.8)
[2022-05-21 06:05] LABS: ALBUMIN 2.2 g/dL (3.4-4.8); CREATININE 5.71 mg/dL (0.55-1.30); PHOSPHORUS 8.3 mg/dL (2.7-4.5)
[2022-05-21 06:09] LABS: CALCIUM 5.8 mg/dL (8.4-11.0); TOTAL BILIRUBIN 21.1 mg/dL (0.0-1.0)
[2022-05-21] MEDS ORDERED: NOREPINEPHRINE 4 MG/4 ML VIAL IV ONE ×3 (06:46→12:09)
[2022-05-21] MEDS: NOREPINEPHRINE BITARTRATE 4 MG in NS 246 ML IV PRN (06:51)
[2022-05-21] MEDS ORDERED: PHYTONADIONE 10 MG/ML AMP SUBCUT ONE (07:15)
--- NOTE | 2022-05-21 07:30 | NUR ---
Received pt from ROCIO RN. Pt is stable, NAD, VSS, AAOx3. Patient has a right EJ 18g, right AC 20g, and left hand 22g. On 2L nasal cannula. Bed is locked and in lowest position, call light button within reach, fall and safety precautions is in place.
[2022-05-21] MEDS: HYDROCORTISONE ACETATE 1 SUPP (ANUSOL HC) RC SCH ×2 (08:33→15:00)
[2022-05-21] MEDS: LACTULOSE 20 GM/30 ML UDC PO SCH ×2 (09:00→15:00)
[2022-05-21] MEDS ORDERED: prednisoLONE 15 MG/5 ML UDC PO SCH (09:00)
[2022-05-21] MEDS ORDERED: RIFAXIMIN 550 MG TABLET PO SCH (09:00)
--- NOTE | 2022-05-21 09:00 | NUR ---
Wound Evaluation: Wound Consult ordered for Low Baljeet Score. Patient evaluated for a low Baljeet score of 15. Patient noted with altered mental status on Paradis Bed. Patient needs to be turned in bed. Skin is jaundiced and intact. Recommend repositioning patient every 2 hours with pillow support. Elevate, off-load and float bilateral heels with pillows. Offload pressure areas with pillows for pressure re-distribution. Perform skin care and monitor skin integrity Q shift. Use moisture barrier cream on moisture susceptible areas QID and PRN for soiling.
[2022-05-21] MEDS ORDERED: CALCIUM GLUCONATE 2 GM in NS 100 ML IV ONE (09:15)
[2022-05-21] MEDS ORDERED: HEPARIN SODIUM,PORCINE 5,000 UNITS/ML VIAL IVP ONE (12:00)
[2022-05-21] MEDS ORDERED: ALBUMIN HUMAN 25% 200 ML IV ONE ×2 (12:20→12:45)
[2022-05-21 12:22] LABS: INR 3.1 (0.8-1.2)
[2022-05-21] MEDS: NOREPINEPHRINE BITARTRATE 8 MG in NS 242 ML IV PRN ×2 (12:25→14:52)
[2022-05-21] MEDS ORDERED: HEPARIN SODIUM,PORCINE 5,000 UNITS/ML VIAL MC ONE (12:30)
[2022-05-21 13:28] LABS: PROTHROMBIN TIME 30.3 SECS (9.5-12.5)
[2022-05-21] MEDS ORDERED: NOREPINEPHRINE BITARTRATE 32 MG in NS 218 ML IV PRN (15:00)
--- NOTE | 2022-05-21 15:47 | NUR ---
Patient was denied by [facility] due continuing ETOH abuse being documented.
--- NOTE | 2022-05-21 16:06 | NUR ---
ST EVALUATION COMPLETED. ST TX NOT INDICATED AT THIS TIME. RECOMMEND PO DIET OF PUREE AND THIN LIQUIDS. DISTANT SUPERVISION AND FULL ASPIRATION PRECAUTIONS
--- NOTE | 2022-05-21 16:19 | NUR ---
Met with this morning after ICU rounds with the CHERI Gilbert. The was advised of the patient's clinical state and informed about the complicating factors surrounded by a transfer for a liver transplant. At this time, the patient may not be appropriate for a transfer for a liver transplant due to the patient never having a work up for a liver transplant. Per , the patient is a heavy drinker and was regularly drinking prior to her admission. The was tearful ini conversation and expressed his desire for his children to be able to come and see their mother. With permission from the charge nurse, permission was extended for the children to see their mother this afternoon. Met with the children in the afternoon in the ICU waiting room. I introduced myself and explained what a hospital social work job titles does. I provided my business card to the oldest son and the . I advised the children that their mother may look and seem different from the last time they interacted with her, but they should know that she can hear and sense them. I advised them that I am available to talk with them as well as their school counselor. I referred the to the medical group for additional therapeutic services, and advised him that the department does have resources to assist and address. After the visit with their mother, I met the children and back in ICU. The children were observed hugging their mother and saying their goodbyes for the evening. The nurse advised the that he will keep him updated with any news that may occur. I advised the that I will be available should anything arise.
[2022-05-21] MEDS ORDERED: ROCURONIUM BROMIDE 10 MG/ML (ZEMURON) ONE (19:00)
--- NOTE | 2022-05-21 19:30 | NUR ---
RECEIVED PATIENT AWAKE, ALERT AND VERY ANXIOUS, FOLLOWS COMMANDS, MOVES ALL EXTREMITIES. PATIENT IS ON 2LPM/NC. SAT 96-100%. NO RESPIRATORY DISTRESS NOTED. PATIENT;S BLOOD PRESSURE 79/54. ON LEVOPHED AT 1 MCG/KG/MIN VIA RUE PICC. IVF OF NS IS INFUSING AT 150 ML/HR. SKIN IS VERY COLD. BLOOD PRESSURES NOT APPRECIATED, SET EVERY 15 MINUTES. 1952 PM BLOOD PRESSURE 111/71. 20:38 BLOOD PRESSURE IS 81/38. NOTIFIED DR. LAI OF THE BLOOD PRESSURES. ORDERED TO ADD NEOSYNEPHRINE DRIP. PHARMACY NOTIFIED. 21:51 PATIENT HAS SEVERE BRADYCARDIA THEN TO AGONAL RHYTHM, CODE BLUE TRIVEDI, CPR STARTED. PLEASE SEE CODE BLUE SHEET FOR MEDICATIONS GIVEN DURING THE CODE. 21:24 PRONOUNCED BY ER MD, DR. GUZMAN. FAMILY AND ALL THE DOCTORS WERE NOTIFIED. CORONERS NOTIFIED, [facility] NOTIFIED. PLEASE SEE RECORD OF .
[2022-05-21] MEDS ORDERED: PHENYLEPHRINE HCL 100 MG in NS 240 ML IV PRN (20:45)
--- NOTE | 2022-05-21 21:24 | NUR ---
RT NOTES RESPONDED TO LUDA PASTOR CALLED AT 2101. CPR IN PROGRESS UPON ARRIVAL WITH [address] GUZMAN UNABLE TO OPEN JAW TO INSERT ETT AFTER MULTIPLE ATTEMPTS. EMERGENCY TRACHEOTOMY PERFORMED BY DR GUZMAN AT 2115. ETT PLACED WITH GUIDANCE OF THE BOUGIE AT 2117. HOBBIES AND CRAFTS SALES REPRESENTATIVE BALLOON OF ETT INFLATED. COLOR CHANGE DETECTED ON CO2 DETECTOR. EQUAL BILATERAL B/S AUSCULTATED. SUCTIONED LARGE AMOUNT OF BLEED THROUGH ETT. LUDA PASTOR CALLED AT 2123 TIME OF . Addendum: 05/21/22 at 2153 by Jose David Sandy RT Amended: Links added.
--- NOTE | 2022-05-21 21:45 | NUR ---
POST MORTEM CARE DONE. PER [facility] IS A POSSIBLE DONOR. REF # [id number]
--- NOTE | 2022-05-21 23:11 | NUR ---
NOTIFIED Drs Mala Tirado & James we notified by leaving a message with [employer] regarding Pt's expiration.
--- NOTE | 2022-05-21 23:17 | NUR ---
DR RAFY Toro message was left with his exchange, notifying him of Pt's expiration.
[2022-05-22] MEDS ORDERED: FLUCONAZOLE 100 mg/ NS 50 ML IV SCH (09:00)
== END 2022-05-21 23:27 | DRG 871 ==
LOC: SED 16:53 → SIC 20:30
PROVIDERS: ADMIT Preventive Medicine Preventive Medicine/Occupational Environmental Medicine; ATTEND Preventive Medicine Preventive Medicine/Occupational Environmental Medicine
PROC: B543ZZA Ultrasonography of Right Jugular Veins, Guidance (ICD-10-PCS; 2022-05-20)
PROC: 05HM33Z Insertion of Infusion Device into Right Internal Jugular Vein, Percutaneous Approach (ICD-10-PCS; 2022-05-20)
PROC: 02HV33Z Insertion of Infusion Device into Superior Vena Cava, Percutaneous Approach (ICD-10-PCS; principal; 2022-05-21)
PROC: B548ZZA Ultrasonography of Superior Vena Cava, Guidance (ICD-10-PCS; 2022-05-21)
PROC: 5A12012 Performance of Cardiac Output, Single, Manual (ICD-10-PCS; 2022-05-21)
PROC: 0BH18EZ Insertion of Endotracheal Airway into Trachea, Via Natural or Artificial Opening Endoscopic (ICD-10-PCS; 2022-05-21)
PROC: 5A1935Z Respiratory Ventilation, Less than 24 Consecutive Hours (ICD-10-PCS; 2022-05-21)
PROC: 5A1D70Z Performance of Urinary Filtration, Intermittent, Less than 6 Hours Per Day (ICD-10-PCS; 2022-05-21)
DX: A41.9 Sepsis, unspecified organism (principal); E43 Unspecified severe protein-calorie malnutrition; J96.00 Acute respiratory failure, unspecified whether with hypoxia or hypercapnia; K72.00 Acute and subacute hepatic failure without coma; K76.7 Hepatorenal syndrome; R65.21 Severe sepsis with septic shock; D68.9 Coagulation defect, unspecified; M62.82 Rhabdomyolysis; N17.9 Acute kidney failure, unspecified; E87.1 Hypo-osmolality and hyponatremia; N39.0 Urinary tract infection, site not specified; I46.9 Cardiac arrest, cause unspecified; E88.09 Other disorders of plasma-protein metabolism, not elsewhere classified; D63.8 Anemia in other chronic diseases classified elsewhere; R73.9 Hyperglycemia, unspecified; E80.6 Other disorders of bilirubin metabolism; E83.52 Hypercalcemia; K70.10 Alcoholic hepatitis without ascites; F10.20 Alcohol dependence, uncomplicated; K74.60 Unspecified cirrhosis of liver; Z20.822 Contact with and (suspected) exposure to COVID-19; K76.82 Hepatic encephalopathy; Z79.01 Long term (current) use of anticoagulants; Z86.711 Personal history of pulmonary embolism; Z79.899 Other long term (current) drug therapy; Z68.22 Body mass index [BMI] 22.0-22.9, adult
CPT/HCPCS: 36415; 70450-TC; 71045; 76376; 76700-TC; 80053; 80307; 81000; 82009; 82140; 82550; 82553; 82962; 83605; 83735; 84100; 84484; 85007; 85025; 85027; 85610-TC; 85730-TC; 86140; 87040; 87081; 87086; 90937; 92610-GN; 92950; 94640; 96365; 96367; 96375; 99291; G0480; G0481; G0482; J0610; J1450; J1644; J2370; J2543; J3430; J3490; J7050; J7613; P9041; P9046